=== PATIENT | female | born 1990 | race Caucasian/White ===

== ENCOUNTER 2021-02-23 15:37 | Inpatient (IN) | payer BC ==
[~2021-02-23] VITALS: Ht 170.2 cm; Wt 83.2 kg
[2021-02-27] MEDS ORDERED: TYLENOL W/CODEI1 TAB (06:12)
[2021-02-27 06:13] LABS: HEMATOCRIT 34.1 % (36.0-48.0); HEMOGLOBIN 11.6 g/dL (12-16); MCH 30.6 pg (26.0-34.0); MEAN PLATELET VOLUME 6.8 fL (7.4-10.4); RBC 3.79 10x6/uL (4.00-5.40); WBC 10.8 10x3/uL (4.8-10.8)
[2021-02-27] MEDS ORDERED: KLONOPIN0.5 MG (06:13)
[2021-02-27] MEDS ORDERED: AMPICILLIN TRI500 MG (06:14)
[2021-02-27] MEDS ORDERED: FLUCONAZOLE150 MG (06:15)
[2021-02-27] MEDS ORDERED: AMBIEN10 MG (06:16)
[2021-02-27 06:31] VITALS: BP 129/71; Ht 170.2 cm; Wt 83.2 kg
--- NOTE | 2021-02-27 09:40 | NUR ---
PT PRESENT AT 0510 THIS MORNING STATING THAT SHE IS SCHEDULED FOR AN ELECTIVE SECTION WITH DR. DARDEN. NAME, VERIFIED AND PT ESCORTED TO ROOM 1274. URINE OBTAINED FROM PT AND PT THEN PLACED ON MONITOR.
[2021-02-27 11:40] LABS: BASOPHILS 1.1 % (0-2); EOSINOPHILS 0.2 % (0-7); HEMATOCRIT 35.3 % (36.0-48.0); HEMOGLOBIN 11.8 g/dL (12-16); LYMPHOCYTES 10.6 % (15-50); MCH 30.3 pg (26.0-34.0); MCHC 33.5 g/dL (31.0-37.0); MCV 90.4 fL (80.0-100.0); MEAN PLATELET VOLUME 6.8 fL (7.4-10.4); MONOCYTES 5.4 % (2-11); NEUTROPHILS 82.7 % (40-80); PLATELET COUNT 443 10x3/uL (130-400)
--- NOTE | 2021-02-27 12:00 | NUR ---
REPORT REC'D FROM Opal MARLEY RN.
[2021-02-27 12:15] VITALS: BP 131/67
[2021-02-27] MEDS ORDERED: PEPCID AC20 MG PO ×2 (12:22→12:32)
--- NOTE | 2021-02-27 12:23 | NUR ---
DURING INITIAL DISCUSSION OF HOME MEDICATIONS, PT STATED THAT SHE HAS SEVERE ANXIETY AND TAKES KLONOPIN FOR HER ANXIETY. SHE STATES THAT SHE HAS TAKEN THAT THROUGHOUT THE , WELL AMBIEN TO AID IN SLEEPING. PT VERBALLY STATED THAT THE LAST TIME SHE TOOK THESE MEDICATONS WAS "ABOUT 2 WEEKS AGO, 02/13/21. PT ALSO STATED THAT SHE TAKES ZOLOFT, BUT HAS BEEN OFF OF IT FOR A "COUPLE OF WEEKS" DUE TO PHYSICIAN STATING THAT SHE NEEDED TO DISCONTINE PRIOR TO DELIVERY. PT ALSO , UTILIZES RECREATIONAL THC AND STATES THAT THE LAST TIME IT WAS USED WAS ABOUT TWO WEEKS AGO WELL. OTHER MEDICATIONS NOTED THROUGHOUT [facility] PER PATIENT INCLUDED TYLENOL NUMBER THREE (PT STATES THESE ARE FOR MIGRAINES AND THAT SHE TOOK ONE ABOUT A MONTH AGO.) INFORMATION PROVIDED TO NURSERY NURSE AT THIS TIME. AT 1220 HAND OFF REPORT WAS PROVIDED TO eleazar HARDEN RN AND Rajinder HURTADO RN. PREM EMPTIED, PERICARE PROVIDED AND UPDATES PROVIDED TO ON COMING RN. PT INTRODUCED TO ONCOMING RN'S. BOTH, ONCOMING RN'S AND PT DENY NEEDS OR CONCERNS.
--- NOTE | 2021-02-27 12:25 | NUR ---
PT IS CURRENTLY SITTING UP IN THE BED, , PT HAS MUSHROOM GROWING SUPERVISOR BUTTON WITHIN REACH, HAS CALL LIGHT WITHIN REACH. PT DENIES ALL OTHER NEEDS AT THIS TIME. SRUP X2, CALL LIGHT AND PHONE WITHIN REACH. SIG OTHER AT BEDSIDE.
--- NOTE | 2021-02-27 13:00 | NUR ---
RN TO BEDSIDE FOR ASSESSMEMT. PT AA&O X 4. PAIN ASSESSED. PT REPORTS PAIN 3/10. STATES IV PAIN MEDICATION IS WORKING WELL TO CONTROL HER PAIN. BREATHSOUNDS CL/=, HRR, ABD SOFT, NON DISTENDED. BOWEL SOUNDS PRESENT X 4. AMARO CATH IN PLACED DRAINING VIA GRAVITY. FUNDUS FIRM,U/1,MIDLINE. SCANT LOCHIA NOTED. NO PERIPAD CHANGE NEEDED. SCD WRAPS IN PLACE BILATERALLY. CONNECTED TO PUMP. PUMP IS ON AND FUNCTIONING. PIV TO LEFT FOREARM W/NS W/20UNITS OF PITOCIN INFUSING AT 125ML/HR AND DILAUDID CHAIR MECHANIC IN PLACE. PT'S SIG OTHER TO GET PT SOMETHING TO EAT. FRESH ICE CAP PLACED TO ABD. FRESH ICE WATER SERVED. PT MOVES SELF IN BED AND REPOSITIONS SELF FREQUENTLY. I.S. EDUCATIO PROVIDED AND PT PERFORMS I.S. X 3 W/GOOD EFFORT AND COUGHS W/GOOD EFFORT. BED LOW, SIDE RAILS UP X 2. CALL LIGHT AND CHAIR MECHANIC BUTTON AT PT'S SIDE.
--- NOTE | 2021-02-27 14:00 | NUR ---
ROUNDS MADE. PT SITTING UP IN BED READING. HEAD OF BED RECLINED FOR FUNDAL ASSESSMENT. FUNDUS FIRM,U/1, SCAN TO SMALL LOCHIA NOTED. NO PERIPAD CHANGE NEEDED. PT RATES PAIN 3/10. NO ADDITIONAL PAIN INTERVENTIONS REQUESTED AT THIS TIME. I&O COLLECTED. SEE FLOWSHEET. IV PUMP CLEARED AT THIS TIME. PT DENIES NEEDS.
[2021-02-27 16:10] VITALS: BP 104/68
--- NOTE | 2021-02-27 16:10 | NUR ---
RN TO BEDSIDE FOR ROUNDING AND VITAL SIGNS. PT CURRENTLY . PAIN AND NEEDS ASSESSED. PT DENIES NEEDS. STATES PAIN "IS FINE". NO ADDITIONAL INTERVENTIONS REQUESTED AT THIS TIME. VITAL SIGNS OBTAINED. SEE FLOWSHEET. APPROX 300ML URINE NOTED IN UROMETER AND DUMPED. SCD WRAPS REMAIN IN PLACE. REMAIN CONNECTED TO PUMP. PUMP IS ON AND FUNTIONING. BED LOW. SIDE RAILS UP X 2.CALL LIGHT AND SPORTS TRAINER BUTTON AT PT'S SIDE.
--- NOTE | 2021-02-27 17:35 | NUR ---
RN TO BEDSIDE FOR ROUNDING. PT AA&O X 4. PAIN AND NEEDS ASSESSED. PT REPORTS INCREASED ABD CRAMPING THAT SHE RATES 5/10. NEW BAG OF PITOCIN UP TO INFUSE AT 125ML/HR AND TORADOL 30MG SIVP GIVEN. SEE EMAR. I&O COLLECTED. IV PUMP CLEARED. APPROX 200ML URINE NOTED IN UROMETER AND DUMPED. FUNDUS FIRM,U/1, MIDLINE. SCANT LOCHIA NOTED. CLEAN PERIPAD PLACED. SCD WRAPS REMAIN ON BILATERALLY. REMAIN CONNECTED TO PUMP. PUMP IS ON AND FUNCTIONING. PT REPORTS SHE IS PASSING MORE FLATUS AND HAS BEEN PERFORMING I.S. PT REPOSITIONS SELF FREQUENTLY IN BED. FRESH ICE WATER, CUP OF ICE AND FRESH ICE CAP PROVIDED. PT DENIES FURTHER NEEDS. PLANS TO NAP NOW. APPROX 700ML URINE EMPTIED FROM AMARO BAG. BED LOW. SIDE RAILS UP X 2. CALL LIGHT AND ONCOLOGY COORDINATOR BUTTON AT PT'S SIDE.
--- NOTE | 2021-02-27 17:40 | NUR ---
PT ASKS IF WE WILL NOTIFY DR. DARDEN TO ASK IF SHE CAN BE MORMALIZED THIS EVENING, SHE IS READY TO GET UP OUT OF THE BED TO SHOWER AND WALK AROUND. DR. DARDEN NOTIFIED BY PHONE, AND STATES HE WILL PUT ORDERS IN. PT NOTIFIED.
--- NOTE | 2021-02-27 19:05 | NUR ---
BEDSIDE SHIFT REPORT RCVD. PT DENIES NEEDS AT THIS TIME. WILL RETURN FOR SHIFT ASSESSMENT.
[2021-02-27 20:02] LABS: BASOPHILS 0.4 % (0-2); EOSINOPHILS 0.6 % (0-7); HEMATOCRIT 32.4 % (36.0-48.0); HEMOGLOBIN 11.1 g/dL (12-16); LYMPHOCYTES 16.2 % (15-50); MCHC 34.1 g/dL (31.0-37.0); MEAN PLATELET VOLUME 6.8 fL (7.4-10.4); MONOCYTES 7.1 % (2-11); NEUTROPHILS 75.7 % (40-80); PLATELET COUNT 392 10x3/uL (130-400); RBC 3.56 10x6/uL (4.00-5.40); RDW 12.9 % (11.5-14.5)
[2021-02-27 20:04] LABS: WBC 10.3 10x3/uL (4.8-10.8)
--- NOTE | 2021-02-27 20:45 | NUR ---
SHIFT ASSESSMENT COMPLETED AT THIS TIME. SEE FLOWSHEET. HR-RRR, PPP, LUNGS CTAB, BS X4. PIV TO LT WRIST PATENT WITH DRESSING C/D/I. NO ERYTHEMA OR EDEMA NOTED TO SITE. PT DENIES PAIN OR NEEDS AT THIS TIME. BED LOW, WHEELS LOCKED, CALL LIGHT AND PHONE WITHIN REACH, SIDE RAILS UP X2.
[2021-02-27 21:03] VITALS: BP 119/77
--- NOTE | 2021-02-27 21:03 | NUR ---
RN TO BEDSIDE. PT SITTING UP IN BED WITH UP IN ARMS BONDING. POC DISCUSSED WITH PT TO INCLUDE D/C AMARO CATHETER, VISUAL EDUCATION TEACHER AND AMBULATION. UNDERSTANDING VERBALIZED AND PT AGREEABLE. AMARO CATH D/C'D WITH CATH TIP INTACT. 400 ML CLEAR YELLOW URINE NOTED IN UROMETER. PERIPAD CHANGED AT THIS TIME. VISUAL EDUCATION TEACHER D/C'D. ADVISED PT TO CALL IT GENERALIST LIGHT WHEN READY TO VOID FOR ASSISTANCE. UNDERSTANDING VERBALIZED. RASH TO LOWER ABD NOTED. PT REPORTS IT HAS BEEN ITCHING "ALL DAY." DR GAMBINO PHONED. REPORT GIVEN ON PT RASH. T/O RCVD FOR BENADRYL 25MG PO.
--- NOTE | 2021-02-27 22:08 | NUR ---
PT RINGS CL AND REPORTS SHE AMB PER SELF TO BATHROOM TO VOID. RN TO BEDSIDE. EDUCATION PROVIDED ON [employer] FOR CALLING FOR NURSE ASSISTANCE WITH AMBULATION. UNDERSTANDING VERBALIZED. PT DENIES DIZZINESS OR LIGHTHEADEDNESS WHEN GETTING OOB. 100 ML CLEAR YELLOW URINE EMPTIED FROM [place] HAT. ADVISED PT TO COLLECT URINE WITH VOIDING AGAIN. UNDERSTANDING VERBALIZED. PT REQUESTS PAIN MEDICATION. WILL RETURN WITH SAME.
--- NOTE | 2021-02-27 22:16 | NUR ---
MOTRIN 600MG X1 TAB, NORCO 10/325 MG X1 TAB AND BENADRYL 25 MG GIVEN PER ORDERS AT THIS TIME. SEE EMAR FOR ADMINISTRATION. PT DENIES FURTHER NEEDS.
--- NOTE | 2021-02-27 23:00 | NUR ---
ROUNDS MADE. INFORMED PT OF NEED FOR CLEAN CATCH URINE SPECIMEN FOR UDS. UNDERSTANDING VERBALIZED. RATES PAIN 3/10 AND TOLERABLE. DENIES FURTHER NEEDS AT THIS TIME.
--- NOTE | 2021-02-27 23:28 | NUR ---
URINE SAMPLE COLLECTED FOR UDS AND TAKEN TO LAB AT THIS TIME. MESH PANTIES PROVIDED TO PT. NO FURTHER NEEDS VOICED.
[2021-02-27 23:55] LABS: UDS - AMPHET NEGATIVE QUAL (NEGATIVE); UDS - BARB NEGATIVE QUAL (NEGATIVE); UDS - BENZO NEGATIVE QUAL (NEGATIVE); UDS - COCAINE NEGATIVE QUAL (NEGATIVE); UDS - OPIATE POSITIVE QUAL (NEGATIVE); UDS - PCP NEGATIVE QUAL (NEGATIVE); UDS - THC POSITIVE QUAL (NEGATIVE)
[2021-02-28 01:50] VITALS: BP 124/90
--- NOTE | 2021-02-28 01:50 | NUR ---
pt. awakened for vitals and to administer pain medication as previously requested at 0105. VSS. See graph. pt. had voided previously and request that i check nuns cap for her 3rd post giron bulb. pt. had voided 600 ml. Emptied and pt. instructed she no longer has to catch urine. Instructed I will bring medication back in a minute.
--- NOTE | 2021-02-28 01:54 | NUR ---
[place] 10/325 mg 1 tab administered orally per MD orders and pt. complaint of pain that rates at "6" currently. pt. also provided with ice pack for incisional pain. Will cont. to monitor.
--- NOTE | 2021-02-28 04:22 | NUR ---
pt. ambulates back to bed from bathroom upon entering the room to provide Motrin as requested. pt. reports pain at "3.5" on 0-10 scale. pt. medicated as requested. Will cont. to monitor.
--- NOTE | 2021-02-28 06:02 | NUR ---
[place] 10/325 mg tab administered orally per MD orders and pt. complaint of pain. pt. rates pain at "6.5" on 0-10 scale.
--- NOTE | 2021-02-28 06:08 | NUR ---
Morning CBC drawn via butterfly in left AC on 1st attempt per MD orders.
--- NOTE | 2021-02-28 06:16 | NUR ---
AM lab draw taken to lab.
[2021-02-28 07:05] LABS: BASOPHILS 0.1 % (0-2); EOSINOPHILS 1.2 % (0-7); HEMATOCRIT 29.8 % (36.0-48.0); HEMOGLOBIN 10.4 g/dL (12-16); LYMPHOCYTES 23.1 % (15-50); MCH 31.6 pg (26.0-34.0); MCHC 34.7 g/dL (31.0-37.0); MCV 90.9 fL (80.0-100.0); MEAN PLATELET VOLUME 7.2 fL (7.4-10.4); MONOCYTES 9.2 % (2-11); NEUTROPHILS 66.4 % (40-80); PLATELET COUNT 397 10x3/uL (130-400); RBC 3.28 10x6/uL (4.00-5.40); RDW 13.1 % (11.5-14.5); WBC 8.8 10x3/uL (4.8-10.8)
[2021-02-28 07:14] LABS: RAPID PLASMA REAGIN Non Reactive (Non Reactive)
--- NOTE | 2021-02-28 07:40 | NUR ---
THIS RN TO ROOM FOR PT CHECK. PT SITTING UP IN BED, INFANT. PT RATES PAIN APPROX 4/10, STATES "I'M JUST SORE, BUT I'M OK". PT STATES SHE WOULD LIKE BOTH PAIN MEDS WHEN IT IS TIME AGAIN. COLA PROVIDED PER REQUEST. DENIES FURTHER NEEDS, DOES NOT WANT ICE PACK OR WARM PACK FOR PAIN AT THIS TIME. BREAKFAST TRAY DELIVERED. INSTRUCTED WILL RETURN FOR SHIFT ASSESSMENT AFTER BREAKFAST AND TO CALL FOR ANY NEEDS. UNDERSTANDING VERBALIZED. SRUx2, CL IN REACH. SIG OTHER ON BEDSIDE COUCH.
--- NOTE | 2021-02-28 08:43 | NUR ---
THIS RN TO ROOM FOR SHIFT ASSESSMENT. PT LYING IN BED ON LEFT SIDE, RESTING WITH EYES CLOSED, RESP EVEN AND UNLABORED. LIGHTS IN ROOM DIM. PT LEFT UNDISTURBED FOR REST. SRUx2, CL IN REACH. SIG OTHER RESTING ON BEDSIDE COUCH.
--- NOTE | 2021-02-28 09:25 | NUR ---
DR DARDEN TO ROOM FOR ROUNDING, DISCUSSING POC WITH PT. ABD DRESSING REMOVED BY DR DARDEN, INCISION C/D/I WITH DERMABOND. PT REPORTS PASSING GAS ALREADY, AMBULATING WELL AND PAIN CONTROLLED WITH PO MEDS. DR DARDEN STATES MAY CONSIDER DISCHARGE TODAY IF INFANT IS DISCHARGED.
[2021-02-28 09:27] VITALS: BP 139/83
--- NOTE | 2021-02-28 09:27 | NUR ---
SHIFT ASSESSMENT COMPLETED, VSS, SEE FLOWSHEET FOR DOC. PT RATES PAIN "6.5" OUT OF 10, STATES IS READY FOR BOTH PAIN MEDS WHEN AVAILABLE. DENIES HEAVY LOCHIA OR CLOTS. FF, ML, U/2. SMALL RUBRA LOCHIA. ABD INCISION C/D/I. NO EDEMA NOTED. LEFT FA PIV REMOVED WITHOUT INCIDENT PER VERBAL ORDER FROM DR DARDEN AT BEDSIDE AFTER REVIEWING LABS. POC DISCUSSED WITH PT, DENIES ANY OTHER NEEDS AT THIS TIME. WILL ADMIN MEDS WHEN TIME PER ORDERS. SRUx2, CL IN REACH.
--- NOTE | 2021-02-28 10:06 | NUR ---
PT ADMIN PRN PAIN MEDS ORDERED, SEE EMAR FOR DOC. MED TIMES UPDATED ON WHITE BOARD. PT DENIES NEEDS. SRUx2, CL IN REACH.
--- NOTE | 2021-02-28 11:10 | NUR ---
[facility] TO ROOM TO TALK WITH PT. PT ALERTS TO VOICE AND TALKS WITH [facility]. RATES PAIN 2/10. DENIES NEEDS AT THIS TIME.
--- NOTE | 2021-02-28 11:40 | NUR ---
PT CALLS OUT ASSEMBLER LATCHES AND SPRINGS LIGHT FOR NURSE. STATES SHE WANTS TO RESTART HER ZOLOFT AND KLONOPIN SHE FEELS LIKE SHE NEEDS THEM. DR DARDEN NOTIFIED OF PT REQUEST. STATES WILL START PT ON 100MG ZOLOFT PO DAILY BUT WILL WAIT ON RESTARTING KLONOPIN WHILE PT ON NARCOTS. WILL UPDATE PT ON POC AND ADMIN FIRST DOSE.
--- NOTE | 2021-02-28 12:03 | NUR ---
PT UPDATED ON POC AND ORDER FOR ZOLOFT BUT TO WAIT ON KLONOPIN, AWAITING PHARMACY TO BRING MED. UNDERSTANDING VERBALIZED.
[2021-02-28 12:25] VITALS: BP 132/69
--- NOTE | 2021-02-28 12:25 | NUR ---
PT ADMIN ZOLOFT ORDERED, SEE EMAR FOR DOC. VSS, SEE FLOWSHEET FOR DOC. PT UP TO AMBULATE IN ROOM, BRUSHING TEETH. DENIES FURTHER NEEDS. SRUx2, CL IN REACH.
--- NOTE | 2021-02-28 14:02 | NUR ---
PT REQUESTING NORCO, RATES PAIN 6/10, STATES IS GETTING WORSE. PT ADMIN NORCO ORDERED, SEE EMAR FOR DOC. PT DENIES FURTHER NEEDS. SITTING UP IN BED, INFANT. SRUx2, CL IN REACH. SIG OTHER ON BEDSIDE COUCH.
--- NOTE | 2021-02-28 15:11 | NUR ---
THIS RN TO ROOM FOR PT CHECK AND PAIN REASSESSMENT. PT SITTING UP IN BED, . STATES PAIN IS MUCH BETTER, RATES 2-3/10. PROVIDED WITH WATER AND COLA PER REQUEST. PT DENIES FURTHER NEEDS AT THIS TIME. SRUx2, CL IN REACH. SIG OTHER ON BEDSIDE COUCH.
--- NOTE | 2021-02-28 16:18 | NUR ---
PT STATES SHE IS READY FOR HER MOTRIN TO STAY AHEAD OF HER PAIN, RATES PAIN APPROX 2/10 AT THIS TIME. MOTRIN ADMIN ORDERED PRN, SEE EMAR FOR DOC. PT DENIES FURTHER NEEDS AT THIS TIME. SRUx2, CL IN REACH.
--- NOTE | 2021-02-28 17:21 | NUR ---
THIS RN TO ROOM FOR PT CHECK. SITTING UP IN BED, SETTING UP DINNER TRAY. PT DENIES ANY NEEDS AT THIS TIME. SIG OTHER AT BEDSIDE WITH PT. SRUx2, CL IN REACH.
--- NOTE | 2021-02-28 18:42 | NUR ---
THIS RN TO ROOM FOR PT CHECK. PT RATING PAIN 5/10, STATES SHE IS READY FOR NORCO NOW TO STAY AHEAD OF PAIN. NORCO ADMIN ORDERED PRN, SEE EMAR FOR DOC. COLA PROVIDED TO PT PER REQUEST. PT DENIES FURTHER NEEDS AT THIS TIME. SRUx2, CL IN REACH.
[2021-02-28 19:15] VITALS: BP 127/78
--- NOTE | 2021-02-28 19:15 | NUR ---
PT REC'D IN BED AT THIS TIME. STATES THAT PAIN IS 3/10 AT THIS TIME. IMCISION TO ABDOMEN INTACT. NO S/S OF INFECTION NOTED. PT REPORTS PASSING FLATUS AND VOIDING WITHOUT DIFFICULTY. NO DISTRESS NOTED. CALL LIGHT IN EASY REACH. Tova GARNETT. RN
--- NOTE | 2021-02-28 20:33 | NUR ---
PT REC'D UP IN ROOM AT THIS TIME. NO DISTRESS NOTED. Tova GARNETT RN
--- NOTE | 2021-02-28 21:55 | NUR ---
PT REC'D IN BED AT THIS TIME. CHANGING INFANT AT THIS TIME. NO DISTRESS NOTED. NO NEEDS VOICED. Toav GARNETT RN
--- NOTE | 2021-02-28 22:46 | NUR ---
PT MEDICATED WITH MOTRIN AND NORCO FOR PAIN LAVEL OF 4/10. NO DISTRESS NOTED. CALL LIGHT IN PT REACH. Tova GARNETT RN
[2021-03-01 02:10] VITALS: BP 127/86
--- NOTE | 2021-03-01 02:14 | NUR ---
pt. medicated for c/o incisional pain before going to sleep. pt. reports pain is at "2" on 0-10 scale but reports "i want to stay on top of the pain". VSS. See graph. Instructed pt. to call out if any further needs. call light within reach. pt. denies any further needs at present.
--- NOTE | 2021-03-01 03:00 | NUR ---
pt. resting with eyes closed. no signs of distress noted. resp. are even and unlabored. pt. not disturbed.
--- NOTE | 2021-03-01 05:15 | NUR ---
pt. resting with eyes closed. no signs of distress noted. resp. are even and unlabored. pt. not disturbed at this time.
--- NOTE | 2021-03-01 06:06 | NUR ---
pt. medicated with [place] 10/325 mg 1 tab and Ibuprofen 600 mg 1 tab per md orders and pt.'s report of pain. pt. rates at "4" on 0-10 scale. denies further needs at this time.
--- NOTE | 2021-03-01 07:57 | NUR ---
BREAKFAST PLACED ON BEDSIDE TABLE. PT IN SUPINE POSITION RESTING QUIETLY, NO SS OF DISTRESS NOTED. REQESTED TO SLEEP A LITTLE LONGER. WILL CALL IF HAS ANY NEEDS. CALL LIGHT AND PHONE WITHIN REACH. WILL CONTINUE TO MONITOR CLOSELY.
--- NOTE | 2021-03-01 10:50 | NUR ---
PT SITTING IN BED NURSING , ASSESSMENT COMPLETE, VSS NO SIGNS OF DISTRESS NOTED. C/S INCISION CLEAN, DRY AND WITHOUT REDNESS OR DISCHARGE. DISCHARGE TEACHING COMPLETE. BED IN LOW POSITION, SRU X2, CALL LIGHT AND PHONE WITHIN REACH.
[2021-03-01 10:55] VITALS: BP 129/80
--- NOTE | 2021-03-01 10:55 | NUR ---
DR GAMBINO ON UNIT TO PT'S ROOM. VERBAL DISCHARGE TO ROOMING IN ORDER REC'D.
--- NOTE | 2021-03-01 14:17 | NUR ---
PT WALKED TO DESK, BROUGHT TO NURSERY, WILL LEAVE TO FILL PERSCRIPTIONS, AND EAT AND THEN WILL RETURN. PT DISCHARGED TO ROOMING IN AT THIS TIME.
== END 2021-03-01 14:23 | disposition home or self-care (01) | DRG 788 ==
LOC: D.LD 02-27 05:02 → D.SDCHOLD 02-27 07:30 → D.LD 03-01 14:23
PROVIDERS: ADMIT Obstetrics & Gynecology; ATTEND Obstetrics & Gynecology
PROC: 10D00Z1 Extraction of Products of Conception, Low, Open Approach (ICD-10-PCS; principal; 2021-02-27)
DX: O99.344 Other mental disorders complicating childbirth (principal); F32.9 Major depressive disorder, single episode, unspecified; Z3A.39 39 weeks gestation of pregnancy; Z37.0 Single live birth; O99.824 Streptococcus B carrier state complicating childbirth; F34.1 Dysthymic disorder